=== PATIENT | female | born 1975 | race Caucasian/White ===

== ENCOUNTER 2020-08-03 09:28 | Outpatient (CLI) | payer OTHER, SELFPAY ==
--- NOTE | ~2020-08-03 | XR_ITS ---
EXAMINATION: XR knee LT 2V EXAM DATE: 08/03/2020 09:46 INDICATION: M25.569 - Pain in unspecified knee. Left central knee pain radiates laterally. Limited RO M. No surg. unk inj. TECHNIQUE: Frontal and lateral projections of the left knee. There is no prior study for comparison . FINDINGS: The left knee spaces are maintained. No joint effusion. There are no acute fractures or di slocations identified. There is no subcutaneous gas. Possible medial lower thigh varicose veins. T here are no radiopaque foreign bodies. IMPRESSION: 1. Possible medial thigh varicosities. 2. Unremarkable left knee. Reviewed, dictated and finalized at location A.
== END 2020-08-03 09:29 ==
PROVIDERS: PCP Family Medicine; Visit Provider Nurse Practitioner Family
DX: M25.569 Pain in unspecified knee (principal)
CPT/HCPCS: 73560

== ENCOUNTER 2023-10-14 14:05 | Emergency (ER) | payer BC, OTHER, SELFPAY ==
--- NOTE | ~2023-10-14 | CT_ITS ---
CT OF right knee EXAMINATION: CT knee RT wo con DATE: 10/14/2023 15:34 INDICATION: Knee pain TECHNIQUE: Computed tomography (CT) of the right knee was performed without intravenous contrast. Aut omated exposure control and iterative reconstruction technique were employed. The dose-length product was 527.54 mGy-cm. COMPARISON: X-ray right knee same date FINDINGS: 5 mm osseous excrescence off the lateral condyle, with overlying calcification measuring 4 mm in thic kness. Mild surrounding inflammatory change. No lytic or blastic lesion. No periosteal change. No fra cture or dislocation. Degenerative subchondral cysts in the tibial spine. The ACL is not visualized. Mild lateral joint space narrowing. Mild tricompartmental osteophytosis. IMPRESSION: 5 mm lateral epicondylar osteochondroma, with overlying cartilaginous cap calcification, thickening, and surrounding inflammatory change. Suspected chronic ACL tear. Consider nonemergent MRI of the knee for further evaluation. Reviewed, dictated and finalized at location K. IMPRESSION: 5 mm lateral epicondylar osteochondroma, with overlying cartilaginous cap calci fication, thickening, and surrounding inflammatory change. Suspected chronic ACL tear. Consider nonemergent MRI of the knee for further evaluation.
[2023-10-14 14:12] VITALS: BP 150/90; PULSE 100; RESP 20; TEMP 36.7; O2SAT 100
--- NOTE | 2023-10-14 15:29 | ED.LOWEXIN ---
HPI - Extremity Injury (Lower) General Chief Complaint: Extremity Injury, Lower Stated Complaint: R knee pain Time Seen by Provider: 10/14/23 15:00 History of Present Illness HPI Narrative: Pt presents with pain to her lateral right knee since yesterday without any injury. Pt says it hurt a little yesterday but got much worse today and is not able to bear weight due to pain. Related Data Allergies Allergy/AdvReac Type Severity Reaction Status Date / Time No Known Allergies Allergy Unknown Verified 10/14/23 15:14 Review of Systems Review of Systems: All systems reviewed & are unremarkable except as noted in HPI and below PMFSH Past Medical History Medical History (Updated 10/14/23 @ 18:44 by Jose Antonio Hamilton III, DO) BMI 29.0-29.9,adult Family History Family History Father Family history of premature coronary heart disease Mother Family history of malignant neoplasm of uterus Grandparent Diabetes mellitus Social History Social History (Updated 08/03/20 @ 08:37 by Marilee Hassan) Smoking status: Never smoker Alcohol intake: never Exam Const: General: healthy appearing and no acute distress Nutritional Appearance: well nourished Orientation/consciousness: patient oriented x3 Limitations: no limitations Resp: Effort & Inspection: normal respiratory effort Auscultation: clear to auscultation bilaterally Cardio: Rate: regular rate Rhythm: regular rhythm GI: GI Palp: Yes Soft to palpation and No Tenderness to palpation present (GI) Auscultation: normal bowel sounds Skin: General skin exam: normal color Rashes: no rashes Wounds: no wounds Neuro: General: patient oriented x3, moves all extremities, no meningeal signs and no focal motor deficits Speech: normal speech Extrem: General: normal to inspection and no clubbing, cyanosis or edema Other: tender over lateral collateral ligament no effusion some tenderness over lateral right hamstring. no calf pain. pulses intact distally. Course Vital Signs Vital signs: Vital Signs Temperature 98.0 F 10/14/23 14:12 Pulse Rate 100 10/14/23 14:12 Respiratory Rate 20 10/14/23 14:12 Blood Pressure 150/90 H 10/14/23 14:12 Pulse Oximetry 100 10/14/23 14:12 Oxygen Delivery Room Air 10/14/23 14:12 Temperature 98.0 F 10/14/23 14:12 Pulse Rate 100 10/14/23 14:12 Respiratory Rate 20 10/14/23 14:12 Blood Pressure 150/90 H 10/14/23 14:12 Pulse Oximetry 100 10/14/23 14:12 Oxygen Delivery Room Air 10/14/23 14:12 MDM - Extremity Injury (Lower) MDM Narrative Medical decision making narrative: pt tearful and unable to bear weight on right knee due to pain but no injury and no effusion or swelling. x ray unremarkable. will give shot of toradol and get CT of right knee due to level of pain without obvious explanation. CT shows benign osteochondroma. discussed with Dr Bobby will see pt in follow up. Discharge Plan Discharge Clinical Impression: Osteochondroma Patient Disposition: Home, Self-Care Condition: Improved Instructions: Antibiotic Form, Benign Bone Tumor (DC) Prescriptions: New hydrocodone-acetaminophen 5-325 mg tablet 1 tablet PO Q6H PRN (Reason: pain) Qty: 14 0RF No Action cyclobenzaprine 5 mg tablet 5 mg PO TID PRN (Reason: muscle spasm) Qty: 30 0RF Rx Instructions: can take 5-10mg as needed Follow-up/Referrals: Roman Bobby MD [Physician] - Deven Beckham MD [Primary Care Provider] -
[2023-10-14] MEDS: KETOROLAC 30 MG/ML VIAL (*BKC) IM (15:38)
== END 2023-10-14 16:30 | disposition home or self-care (01) ==
PROVIDERS: Emergency Provider Emergency Medicine; PCP Family Medicine
DX: D16.21 Benign neoplasm of long bones of right lower limb (principal)
CPT/HCPCS: 73562; 73700; 96372; 99284; J1885

== ENCOUNTER 2023-10-29 07:49 | Outpatient (CLI) | payer BC, OTHER, SELFPAY ==
--- NOTE | ~2023-10-29 | MR_ITS ---
EXAMINATION: MR knee RT wo con DATE: 10/29/2023 08:21 INDICATION: Right knee chondromalacia TECHNIQUE: Magnetic resonance imaging (MRI) of the right knee was performed without intravenous contr ast. Sequences included coronal PD-weighted FSE, coronal PD-weighted FS FSE, sagittal T2-weighted FS E, sagittal PD-weighted FS FSE and axial PD weighted fat saturated FSE. COMPARISON: None. FINDINGS: Medial compartment: Medial meniscus is normal. Partial-thickness chondral fissuring along the anterior weightbearing medi al femoral condyle which appears to involve less than 50% the cartilage surfaces without degenerative subchondral changes. Lateral compartment: Lateral meniscus is normal. Articular cartilage is normal. Patellofemoral compartment: Chondral ulceration appears to involve greater than 50% the cartilage thickness at the origins of the central patellar apical ridge with more shallow chondral ulceration and fissuring at the adjacent me dial lateral patellar facets. Deep chondral ulceration with underlying mild cortical irregularity and subarticular edema-like signal change at the lateral aspect of the lateral trochlea. Mild chondral s urface regularity at the medial trochlea and partial-thickness fissuring at the inferior aspect of th e trochlear groove without degenerative subchondral changes. Ligaments and tendons: Anterior and posterior cruciate ligaments are normal. The medial collateral ligament and fibular georges ateral ligament complex are normal. There is mild tendinopathy without tear of the proximal insertion of the medial head of the gastrocnemius. The extensor mechanism is normal. The visualized medial and lateral hamstring tendons as well as the iliotibial band are normal. Fluid: Physiologic amount of fluid in the joint space. No loose osteochondral bodies identified. Osseous/other: Prominent intraosseous cystic change at the intercondylar eminence which appears to arise the footpla te of the anterior cruciate ligament. There is some patchy red marrow reexpansion the metaphyseal reg ions of the femur, tibia and fibula. No fracture or pathologic marrow replacing process. IMPRESSION: 1. Mild osteoarthritis with moderate and high-grade chondromalacia at the patellofemoral compartment and with moderate grade chondromalacia in the medial compartment. 2. Mild tendinopathy without tear at the femoral origin of the lateral head of the gastrocnemius. Reviewed, dictated and finalized at location B. IMPRESSION: 1. Mild osteoarthritis with moderate and high-grade chondromalacia at the velasquez lofemoral compartment and with moderate grade chondromalacia in the medial comp artment. 2. Mild tendinopathy without tear at the femoral origin of the lateral head of the gastrocnemius.
== END 2023-10-29 07:50 ==
LOC: MICIMG 07:50
PROVIDERS: PCP Family Medicine; Visit Provider Orthopaedic Surgery
DX: M94.261 Chondromalacia, right knee (principal); M17.11 Unilateral primary osteoarthritis, right knee
CPT/HCPCS: 73721

== ENCOUNTER 2023-11-13 01:12 | Day surgery (SDC) | payer BC, OTHER, SELFPAY ==
[2023-11-04 13:12] VITALS: BMI 25.7
--- NOTE | 2023-11-04 13:18 | PC.NURSE ---
Report to the Outpatient Waiting Room, entrance under the green pavilion located off [facility], at time _0600_ on date _[id number]_. Planned Procedure Time: _0730_. Time changes happen often and if your time is changed the preop area will call you the afternoon before. - You and your visitor will be asked to self-screen and do not enter if you have any COVID symptoms. - A mask is optional within the hospital at this time. Patients may have clear liquids (water, carbonated beverages, clear teas, apple juice) until 3 hours prior to surgery with a maximum of 20 ounces. - No food from midnight until time of surgery Take the following medications with a SIP of water the morning of surgery: ___Pain pill if needed. DO NOT STOP ANY OF YOUR OTHER PRESCRIPTION MEDICATIONS PRIOR TO SURGERY ?EXCEPT THE FOLLOWING Medications to discontinue per physician None___ Date to take last dose Please no make-up, nail tristanian, hairspray, perfume, deodorant, or body powder the day of surgery. No jewelry (including any body piercings) or valuables the day of surgery, leave them at home. Please take a shower or bath the night before, or the morning of, surgery with an antibacterial soap. Wear comfortable, loose fitting clothing. - Jewelry must be removed prior to entering the operating room. Rings and piercings that are not removed may be cut off. - The hospital will not accept responsibility for valuables. - Please leave all valuables, including medications, at home the day of surgery. If you are going home after surgery, a licensed peg driver must drive you home. - NO public transportation without another adult if you receive anesthesia. - We recommend that an adult stay with you for 24 hours following discharge. - We also recommend that you do not drive, make important decision, drink alcoholic beverages, or take any drugs that were not prescribed by your health care provider for at least 24 hours after your discharge time. Follow any additional instructions given to you from your surgeon. If you or anyone in your household have experienced Covid symptoms in the past week, please notify your surgeon or the nurse liaison at the phone number below for possible testing. Telephone instructions given to __Mila___and asked if any additional questions and then verbalized understanding. Patient advised to call surgeon office or pre surgery nurse liaison [phone] if any additional questions.
--- NOTE | 2023-11-11 12:32 | PM.IMHP ---
H&P: HPI History of Present Illness Date/Time: 11/11/23 12:32 Chief Complaint: Right knee pain Narrative: 48-year-old with increasing right knee pain over the lateral aspect. No known injury. Found to have osteochondroma on MRI and radiographs. Review of Systems Constitutional: Constitutional: Denies fever(s) Eyes: Eyes: Denies blurry vision ENT: Reports Normal hearing present Cardiovascular: Cardiovascular: Denies chest pain and Denies dyspnea Respiratory: Respiratory: Denies dyspnea and Denies wheezing Gastrointestinal: Gastrointestinal: Denies abdominal pain Genitourinary: Genitourinary: Denies urinary urgency Musculoskeletal: Musculoskeletal: Reports as per HPI and Denies numbness Integumentary/Breasts: Skin/Breast: Denies changing lesions and Denies sores Neurologic: Reports Normal hearing present, Denies behavioral changes, Denies confusion, Denies numbness and Denies convulsions Psychiatric: Psychiatric: Denies behavioral changes, Denies confusion and Denies hallucinations Endocrine: Endocrine: Denies heat intolerance Hematologic/Lymphatic: Hematologic/Lymphatic: Denies easy bleeding Allergic/Immunologic: Allergic/Immunologic: Denies wheezing PMFSH Past Medical History Medical History (Updated 11/11/23 @ 12:33 by Roman Bobby MD) BMI 29.0-29.9,adult Chondromalacia of right knee Osteochondroma of right femur Surgical History Surgical History H/O gastric sleeve History of Family History Family History Father Family history of premature coronary heart disease Mother Family history of malignant neoplasm of uterus Grandparent Diabetes mellitus Social History Social History Social History: caffeine use Smoking status: Never smoker Alcohol intake: current Drinks per week: 2 Living arrangements: with family Occupation/Education: occupation 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- [employer] Gender identity (if verbalized by the patient): Female Spiritual care concerns: No Meds Home Medications and Allergies Home Medications Medication Instructions Recorded Confirmed Type hydrocodone 5 mg-acetaminophen 325 1 tablet PO Q6H PRN pain #20 tabs 06/12/24 07/02/24 Rx mg tablet Allergies Allergy/AdvReac Type Severity Reaction Status Date / Time No Known Allergies Allergy Unknown Verified 11/04/23 13:11 Exam Const: General: No confusion Orientation/consciousness: patient oriented x3 and No confusion HENMT: Head: normal to inspection, normocephalic and atraumatic Eyes: Conjunctivae: conjunctivae normal Sclera: sclerae normal Neck: Neck: supple and nontender Chest: Chest palpation & inspection: normal inspection of the chest Resp: Effort & Inspection: normal respiratory effort and no audible wheezes Cardio: Rate: regular rate Rhythm: regular rhythm GI: GI Palp: No abdominal tenderness and Yes Soft to palpation : General: Yes deferred Skin: General skin exam: no rashes or lesions noted Neuro: General: patient oriented x3 and No confusion Extrem: General: capillary refill normal Right upper extremity: normal to inspection Left upper extremity: normal to inspection Right lower extremity: hip/thigh Details: normal to inspection and normal ROM; no tenderness, knee Details: normal to inspection, tenderness Location: of the medial joint line, swelling Location: of the pre-patellar area, abnormal ROM Details: pain with active ROM during Details: in extension and in flexion and with range as follows ( -5 degrees - flexion 120?) and Stacey's Test Details: positive medially, ankle ( able to actively flex and extend ankle) Details: no tenderness and foot Details: normal capillary refill, toes with normal ROM, vascular exam Details: dorsalis pedis pu
--- NOTE | 2023-11-12 15:34 | WPDANESEPPF ---
Anes - Initial Pre Proc Eval Procedure: Operation Date: 11/13/23 07:30 Proposed Procedures p Excision of Osteochondroma Right Knee, Proceed As Indicated - Roman Bobby MD Date/Time: 11/12/23 15:34 Surgeon: Roman Bobby MD Pre Op Diagnosis: Rt Knee Osteochondromia Patient Data Age: 48 Gender: F Height: 1.6 m Weight: 65.9 kg Allergies Allergy/AdvReac Type Severity Reaction Status Date / Time No Known Allergies Allergy Unknown Verified 11/13/23 06:50 Home Medications Medication Instructions Recorded Confirmed Type hydrocodone 5 mg-acetaminophen 325 1 tablet PO Q6H PRN pain #20 tabs 10/15/23 11/13/23 Rx mg tablet Patient hx anesthesia problems: none Family hx anesthesia problems: none Results Review: All pre-operative results and documents have been reviewed as part of the pre-operative evaluation. [facility] Past Medical History Medical History (Updated 11/11/23 @ 12:33 by Roman Bobby MD) BMI 29.0-29.9,adult Chondromalacia of right knee Osteochondroma of right femur Surgical History Surgical History H/O gastric sleeve History of Family History Family History Father Family history of premature coronary heart disease Mother Family history of malignant neoplasm of uterus Grandparent Diabetes mellitus Social History Social History Social History: caffeine use Smoking status: Never smoker Alcohol intake: current Drinks per week: 2 Living arrangements: with family Occupation/Education: occupation 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 Informed Consent: The patient's anesthetic plan and its attendant risks and benefits were discussed with the patient/family/POA. Questions were solicited and answers provided to the satisfaction of the patient/family/POA.
[2023-11-13] VITALS (8 sets, daily range): BP systolic 93–128; BP diastolic 70–85; PULSE 46–70; RESP 8–16; TEMP 36.8–37; O2SAT 99–100
[2023-11-13] MEDS: LACTATED RINGERS 1,000 ML 30 ML IV CONT ×2 (06:30→08:57)
[2023-11-13] MEDS: ACETAMINOPHEN 500 MG TABLET 1000 MG PO (06:37)
[2023-11-13] MEDS: KETOROLAC 15 MG/ML VIAL (*BKC) IV PUSH (06:45)
--- NOTE | 2023-11-13 06:57 | WPDHPUPDATE1 ---
History and Physical Update Update Date/Time: 11/13/23 06:57 History and Physical has been reviewed, including an updated exam of the patient. There are NO changes in the patient's condition. Risks, benefits, and alternatives have been discussed and questions answered. Patient agrees to proceed with procedure.
[2023-11-13] MEDS: ceFAZolin 2 GM/D5W 50 ML 2 GM/50 ML BAG IVPB (07:25)
[2023-11-13] MEDS: BUPivacaine HCL 0.5% 10 ML AMP 20 ML INFILTRATE (07:49)
[2023-11-13] MEDS: fentaNYL CITRATE INJ (*CRX) 100 MCG/2 ML VIAL 25 MCG IV PUSH ×2 (09:12→09:15)
--- NOTE | 2023-11-13 09:14 | P.OP_ITS ---
Procedure Note - Detailed Date of Procedure 11/13/23 Pre-op Diagnosis Rt Knee Osteochondromia Post-op Diagnosis Same Procedure Performed excision of osteochondroma right distal femur Surgeon Roman Bobby MD String Top Sealer 1st psychiatric technician assistant Anesthesia General Indications 48-year-old with right lateral knee pain and swelling. Radiographs show osteochondroma of the lateral distal femur. CT scan and MRI confirmed findings. Due to pressure on the soft tissue and pain, patient presents for operative excision. Findings 3 x 1.5 x 0.8 cm bony cartilaginous mass lateral femoral condyle Description of Procedure Patient identified in the preoperative holding. Informed consent given. Operative extremity marked. Patient received intravenous antibiotics. Patient brought to the operating room where underwent general anesthetic by anesthesia team. Positioned supine on operating room table. Time-out performed confirming the patient, site of the surgery and the plan. right knee prepped draped usual sterile surgical fashion using ChloraPrep skin solution. Leg exsanguinated and thigh tourniquet inflated to 250 mmHg. Local anesthetic with 0.5% Marcaine plain. Longitudinal incision made over the lateral knee centered over the palpable mass. Hemostasis controlled electrocautery. Iliotibial band identified and incised in line with the skin incision over the mass. Soft tissues was then dissected from the mass arising from the lateral femoral condyle. Appearance of cartilage tissue over the top confirmed the mass. Osteotome then used to resect the mass in 1 unit insuring resection normal bone level. Specimen passed off. No abnormal elements noted. Wound saline and suctioned. Bone bed then addressed bone wax. Fascia repaired with 2-0 Vicryl interrupted suture. Subcutaneous tissue repaired with 2-0 Vicryl and 3-0 Monocryl interrupted suture. Skin repaired with 3-0 Monocryl running subcuticular stitch. Sterile dressing applied. The patient was then woken from anesthesia, extubated and taken to the recovery room in stable condition. All sponge, needle, instrument counts were correct at the end of the case. Implants None Estimated Blood Loss 5 Tourniquet Time Total Tourniquet Time: 43 Drains No Packing No Pathology Yes ( mass right lateral femoral condyle) Complications None Condition Stable Disposition PACU [facility] Billing Surgery - Charge Forward: Surgery Billing ([id number])
== END 2023-11-13 10:25 | disposition home or self-care (01) ==
PROVIDERS: PCP Family Medicine; Visit Provider Orthopaedic Surgery
PROC: (CPT 27355; principal; 2023-11-13 07:30)
DX: D16.21 Benign neoplasm of long bones of right lower limb (principal); Z79.891 Long term (current) use of opiate analgesic; Z98.890 Other specified postprocedural states; Z98.84 Bariatric surgery status; Z80.49 Family history of malignant neoplasm of other genital organs; Z82.49 Family history of ischemic heart disease and other diseases of the circulatory system
CPT/HCPCS: 27355; 88304; 88311; A9270; J0690; J1100; J1885; J2250; J2405; J2704; J3010; J7120

== ENCOUNTER 2023-11-21 14:56 | Outpatient (RCR) | payer BC, OTHER, SELFPAY ==
--- NOTE | 2023-11-21 15:45 | OPREHPOC ---
Outpatient Therapy Plan of Care This is a Multidisciplinary Plan of Care that may contain components documented by all disciplines (PT, OT, and ST.) PT Problem 1 PT Problem #1 Knowledge Deficit PT Goal 1 Goal 1. independent and compliant with HEP Target Visit 6 PT Problem 2 PT Problem #2 Pain PT Goal 1 Goal 1. patient to return to pain free activities Target Visit 12 PT Problem 3 PT Problem #3 Impaired Range of Motion PT Goal 1 Goal 1. 0-140 degrees active R knee rom pain free Target Visit 12 PT Problem 4 PT Problem #4 Impaired Strength PT Goal 1 Goal 1. 5/5 R knee strength 2. 5/5 R hip strength 3. no R knee extension lag Target Visit 12 PT Problem 5 PT Problem #5 Impaired Functional Mobil PT Goal 1 Goal 1. LEFS to display 20% or less functional deficits 2. patient to ambulate with normal gait mechanics 3. reciprocal ambulation up and down steps 4. patient to ambulate 1000ft or more in 6 minute walk test Target Visit 12
--- NOTE | 2023-11-21 15:45 | PTOPEVAL1 ---
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 she reports she had an xray and CT scan and found a mass. she reports this was a benign bone tumor. she reports the surgeon had to split a tendon to get to the bone. she reports she still has pain in the R LE since th surgery. she reports she has difficulty with all activities on her feet. she reports she is able to walk, but is limited in distance. Reported Pain Level Pain Score 2: Self Report Assessment PT Clinical Summary mrs. grey is a pleasant 48 yo woman who presents to skilled PT services for evaluation and treatment of R knee pain, weakness, and decreased functional activity performance following a surgery to remove a benign tumor. she presents today with pain in the lateral R LE, decreased R knee active rom, R LE weakness, and abnormal gait mechanics. she would benefit from continued skilled PT to address her objective/functional deficits and return to prior level functional activity performance/quality of life. Plan of Care Interventions Electrical Stimulation,Gait Training,Hot Pack/Cold Pack,Intermittent Compression,Manual Therapy, Neuro Re-education,Patient/Caregiver Educati, Therapeutic Activities,Therapeutic Exercise PT Services Indicated Yes Treatment Frequency and 3x weekly for 12 visits Duration These treatments will address the objective and functional deficits as defined above. The patient will be advanced safely and appropriately in order for the patient to progress towards his/her prior level of function. Additional exercises will be introduced and as well as a comprehensive home exercise program upon discharge, if needed, ?to ensure carryover of functional gains achieved in the clinic. This treatment plan has been reviewed and agreement upon by the patient.
--- NOTE | 2023-12-01 17:08 | PCPTNOTE ---
I reviewed the License Pending Therapist's documentation and agree with the findings.
--- NOTE | 2023-12-01 17:09 | PCPTNOTE ---
I reviewed the License Pending Therapist's documentation and agree with the findings for note 11/24/23
--- NOTE | 2023-12-05 13:24 | PCPTNOTE ---
On 12/05/23, the license pending V BLOCK SAW OPERATOR, [Yris Cottrell ], provided care and completed [facility] documentation on this patient. I have reviewed the license pending V BLOCK SAW OPERATOR's documentation and agree with the findings.
--- NOTE | 2023-12-08 17:49 | PCPTNOTE ---
I reviewed the License Pending Therapist's documentation and agree with the findings.
--- NOTE | 2023-12-12 17:25 | PCPTNOTE ---
I reviewed the License Pending Therapist's documentation and agree with the findings.
--- NOTE | 2023-12-16 15:17 | OPREHPOC ---
Outpatient Therapy Plan of Care This is a Multidisciplinary Plan of Care that may contain components documented by all disciplines (PT, OT, and ST.) PT Problem 1 PT Problem #1 Knowledge Deficit PT Goal 1 Goal 1. independent and compliant with HEP Target Visit 6 Progress Met PT Problem 2 PT Problem #2 Pain PT Goal 1 Goal 1. patient to return to pain free activities Target Visit 12 Progress Not Met PT Problem 3 PT Problem #3 Impaired Range of Motion PT Goal 1 Goal 1. 0-140 degrees active R knee rom pain free Target Visit 12 Progress Met PT Problem 4 PT Problem #4 Impaired Strength PT Goal 1 Goal 1. 5/5 R knee strength 2. 5/5 R hip strength 3. no R knee extension lag Target Visit 12 PT Problem 5 PT Problem #5 Impaired Functional Mobil PT Goal 1 Goal 1. LEFS to display 20% or less functional deficits 2. patient to ambulate with normal gait mechanics 3. reciprocal ambulation up and down steps 4. patient to ambulate 1000ft or more in 6 minute walk test Target Visit 12 Progress Partially Met
--- NOTE | 2023-12-16 15:18 | PTOPPROG ---
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 she reports she continues to have pain in the R knee, but reports she is hoping to return to work next week. she reports her mobility in the R knee is improved. Assessment PT Clinical Summary mrs. grey presents to skilled PT services for her 10th skilled PT visit. her pain is decreased since her initial evaluation, and her ROM is improved. patient ambulates short bouts with normal mechanics, but patient continues to have unmet strength, pain, and functional goals. continued skilled PT is indicated as patient is trying to return to work and normal functional activities. Plan of Care Interventions Electrical Stimulation,Gait Training,Hot Pack/Cold Pack,Intermittent Compression,Manual Therapy, Neuro Re-education,Patient/Caregiver Educati, Therapeutic Activities,Therapeutic Exercise PT Services Indicated Yes Treatment Frequency and continue skilled PT per initial POC Duration These treatments will address the objective and functional deficits as defined above. The patient will be advanced safely and appropriately in order for the patient to progress towards his/her prior level of function. Additional exercises will be introduced and as well as a comprehensive home exercise program upon discharge, if needed, ?to ensure carryover of functional gains achieved in the clinic. This treatment plan has been reviewed and agreement upon by the patient.
--- NOTE | 2023-12-19 13:08 | OPREHPOC ---
Outpatient Therapy Plan of Care This is a Multidisciplinary Plan of Care that may contain components documented by all disciplines (PT, OT, and ST.) PT Problem 1 PT Problem #1 Knowledge Deficit PT Goal 1 Goal 1. independent and compliant with HEP Target Visit 6 Progress Met PT Problem 2 PT Problem #2 Pain PT Goal 1 Goal 1. patient to return to pain free activities Target Visit 12 Progress Met PT Problem 3 PT Problem #3 Impaired Range of Motion PT Goal 1 Goal 1. 0-140 degrees active R knee rom pain free Target Visit 12 Progress Met PT Problem 4 PT Problem #4 Impaired Strength PT Goal 1 Goal 1. 5/5 R knee strength 2. 5/5 R hip strength 3. no R knee extension lag Target Visit 12 Progress Met PT Problem 5 PT Problem #5 Impaired Functional Mobil PT Goal 1 Goal 1. LEFS to display 20% or less functional deficits 2. patient to ambulate with normal gait mechanics 3. reciprocal ambulation up and down steps 4. patient to ambulate 1000ft or more in 6 minute walk test Target Visit 12 Progress Met
--- NOTE | 2023-12-19 13:08 | PTOPDC ---
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 she reports she has no pain in the R LE. she reports she has been compliant with HEP at home. she reports she is ready to return to work. she reports she is ready to be done with therapy today . Reported Pain Level Pain Score 0: Self Report Pain Score 0: Self Report Assessment PT Clinical Summary mrs. grey presents to skilled PT services for her 12th skilled PT visit. she has not pain in the R LE any longer, and has met all goals for skilled PT. she will DC skilled PT today, and plans to return to work next week. patient will continue with HEP independent at home. Plan of Care PT Services Indicated Yes
== END 2023-12-19 13:22 | disposition home or self-care (01) ==
LOC: CHSPT 14:56
PROVIDERS: Visit Provider Orthopaedic Surgery
DX: D16.21 Benign neoplasm of long bones of right lower limb (principal)
CPT/HCPCS: 97016; 97110; 97112; 97150; 97161; 97530

== ENCOUNTER 2024-03-20 07:36 | Outpatient (CLI) | payer OTHER, BC, SELFPAY ==
--- NOTE | ~2024-03-20 | MM_ITS ---
EXAMINATION: MM screening angel BI w lenard HISTORY: Screening mammogram TECHNIQUE: Craniocaudal and mediolateral oblique 3-D tomosynthesis images were obtained and synthetic 2-D images were generated. CAD analysis was submitted and interpreted. COMPARISON: 02/18/2018 BREAST PARENCHYMAL COMPOSITION:Dense: The breasts are extremely dense, which lowers the sensitivity o f mammography. FINDINGS: Stable lower, inner right breast mass with associated biopsy marker. No suspicious mass, ca lcification, or architectural distortion are identified in either breast to suggest malignancy. There has been no suspicious interval change. IMPRESSION: No mammographic evidence of malignancy. Recommend routine screening mammography in one year. BI-RADS Category 2: Benign finding(s). Reviewed, dictated and finalized at location M. MBLER CARDS AND ANNOUNCEMENTS
== END 2024-03-20 07:37 | disposition home or self-care (01) ==
LOC: MICIMG 07:38
PROVIDERS: PCP Obstetrics & Gynecology; Visit Provider Obstetrics & Gynecology
DX: Z12.31 Encounter for screening mammogram for malignant neoplasm of breast (principal)
CPT/HCPCS: 77063; 77067

== ENCOUNTER 2025-01-02 09:52 | Emergency (ER) | payer BC, OTHER, SELFPAY ==
[2025-01-02 10:03] VITALS: BP 124/61; PULSE 73; RESP 18; TEMP 36.4; O2SAT 100
--- NOTE | 2025-01-02 10:19 | ED.URI ---
HPI - URI/Sore Throat General Chief Complaint: Upper Respiratory Infection Stated Complaint: strep throat Patient presents to Express Care with complaints of pain and burning to roof of mouth and throat that began yesterday. Patient reports significant pain with swallowing and eating due to these symptoms. Denies fever, chills, body aches, nasal congestion, ear pain, headache, dizziness, cough, nausea, vomiting, diarrhea. Patient reports no specific known sick contacts and no history of frequent strep infections. Related Data Allergies Allergy/AdvReac Type Severity Reaction Status Date / Time No Known Allergies Allergy Unknown Verified 01/02/25 10:07 Review of Systems Constitutional: Constitutional: Reports as per HPI, Denies chills, Denies fatigue, Denies fever(s) and Denies weakness Eyes: Eyes: Reports no additional eye complaints ENT: Reports as per HPI, Denies dysphagia, Denies vertigo, Denies dizziness, Denies epistaxis, Denies nasal congestion and Reports sore throat Cardiovascular: Cardiovascular: Reports no additional cardiovascular complaints Respiratory: Respiratory: Reports as per HPI, Denies chest congestion and Denies cough Gastrointestinal: Gastrointestinal: Reports as per HPI, Denies abdominal pain, Denies diarrhea, Denies nausea and Denies vomiting Genitourinary: Genitourinary: Reports no additional female genitourinary complaints Musculoskeletal: Musculoskeletal: Reports as per HPI and Denies myalgias Integumentary/Breasts: Skin/Breast: Reports as per HPI, Denies erythema and Denies rash Neurologic: Reports as per HPI, Denies vertigo, Denies dizziness and Denies headache(s) Psychiatric: Psychiatric: Reports no additional psychiatric complaints Endocrine: Endocrine: Reports no additional endocrine complaints Hematologic/Lymphatic: Hematologic/Lymphatic: Reports no additional hematologic/lymphatic complaints Allergic/Immunologic: Allergic/Immunologic: Reports no additional allergic/immunologic complaints [facility] Past Medical History Medical History 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 BMI 29.0-29.9,adult Surgical History Surgical History H/O gastric sleeve History of Family History Family History Father Family history of premature coronary heart disease Mother Family history of malignant neoplasm of uterus Grandparent Diabetes mellitus Social History Social History Social History: caffeine use Smoking status: Never smoker Alcohol intake: never Drinks per week: 2 Living arrangements: with family Occupation/Education: occupation 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- [employer] Gender identity (if verbalized by the patient): Female Spiritual care concerns: No Exam Const: General: healthy appearing and no acute distress Nutritional Appearance: well nourished Orientation/consciousness: patient oriented x3 Limitations: no limitations HENMT: Head: normal to inspection Ears: external ears normal and TM's normal bilaterally Face/Nose/Sinus: Normal external nose present and Normal nares present Face and sinus: normal facial exam and sinuses nontender Mouth: Yes lip normal and Yes moist mucous membranes Throat: posterior oropharynx abnormal ( Diffuse erythema over the roof of males in posterior pharynx. ) Other: no edema or exudate in posterior pharynx Neck: Neck: normal visual inspection and no lymphadenopathy Resp: Effort & Inspection: normal respiratory effort Auscultation: clear to auscultation bilaterally Cardio: Rate: regular rate Rhythm: regular rhythm Skin: General skin exam: normal color Rashes: no rashes Wounds: no wounds Neuro: General: patient oriented x3 Speech: normal speech Gait exam (Neuro): Normal gait present Psych: Mental Status: mental status grossly normal Affect: normal affect Attitude: cooperative Course Course Level of Care: Express Care Visit Vital Signs Vital signs: Vital Signs Temperature 97.6 F 01/02/25 10:03 Pulse Rate 73 01/02/25 10:03 Respiratory Rate 18 01/02/25 10:03 Blood Pressure 124/61 01/02/25 10:03 Pulse Oximetry 100 01/02/25 10:03 Oxygen Delivery Room Air 01/02/25 10:03 Temperature 97.6 F 01/02/25 10:03 Pulse Rate 73 01/02/25 10:03 Respiratory Rate 18 01/02/25 10:03 Blood Pressure 124/61 01/02/25 10:03 Pulse Oximetry 100 01/02/25 10:03 Oxygen Delivery Room Air 01/02/25 10:03 MDM - URI/Sore Throat MDM Narrative Medical decision making narrative: strep testing negative in clinic will send for culture. No obvious signs of strep. The patient was evaluated by myself in the [facility] care. History is obtained from patient who is an independent historian and physical exam was performed. Available medical records were reviewed at this time. Exam findings show no acute concerns or changes; patient is non-toxic appearing and is in no distress. Patient is appropriate for outpatient treatment and follow-up. I have evaluated and discussed social determinants of health with the patient that could potentially impact subsequent diagnosis and treatment plans. Differential diagnosis and treatment plan were discussed with the patient. Patient agrees with discussion and after shared medical decision making agrees with plan of care. All questions were answered to the patient's satisfaction. Differential Diagnosis Differential diagnosis: Likely upper respiratory infection, otitis media, sinusitis, influenza and pharyngitis Medical Records Attestation: I reviewed the patient's medical records. Lab Data Attestation: I reviewed the patient's lab results. Labs: Lab Results 01/02/25 Range/Units 10:24 POC Grp A Strep Screen Negative (Negative) Discharge Plan Discharge Clinical Impression: Pharyngitis Patient Disposition: Home Condition: Stable Instructions: Antibiotic Form, Pharyngitis (ED), Strep Throat (ED) Additional Instructions: Rapid strep is negative in the office; however we will send to the lab for confirmation; there is a small percentage chance that it can come back positive; if it is, we will call you in 2-3days; and your prescription will be call in to your pharmacy. However, there is NO indication for antibiotic at this time. Recommend antihistamine such as Benadryl at night time and Claritin/Zyrtec/Kasia during the day -Eat something that is easy to swallow, like tea or soup, or popsicles to suck on. You might not feel like eating or drinking, but it's important that you get enough liquids. -Oral rinses such as: Salt water gargles and/or may use topical anesthetic (eg. Chloraseptic spray) or lozenges to relieve dryness or throat pain. -Take tylenol and ibuprofen as needed for pain and fever as directed. -Frequent hand washing or hand post anesthesia care unit nurse is one of the best ways to prevent spread of infection. Please schedule a followup visit with your personal physician for further evaluation and treatment within 3-5days or If your symptoms persist, change or worsen significantly before you can contact your personal physician then please, without delay, go to the emergency department for further evaluation. Patient Language: Niuean Prescriptions: New lidocaine HCl [Lidocaine Viscous] 2 % solution 1 applic mucous membrane QID PRN (Reason: pain) Qty: 100 0RF Follow-up/Referrals: Deven Beckham MD [Primary Care Provider, Family Practice] Time of Disposition: 10:27
[2025-01-02 10:26] LABS: EDSTREPNEGPOS1 Negative (Negative)
== END 2025-01-02 10:31 | disposition home or self-care (01) ==
PROVIDERS: Emergency Provider Nurse Practitioner Family; PCP Family Medicine
DX: J02.9 Acute pharyngitis, unspecified (principal)
CPT/HCPCS: 87081; 87880; 99213; G0463

== ENCOUNTER 2025-04-01 08:57 | Outpatient (CLI) | payer BC, OTHER, SELFPAY ==
--- NOTE | ~2025-04-01 | MM_ITS ---
EXAMINATION: MM screening angel BI w lenard HISTORY: Screening. TECHNIQUE: Craniocaudal and mediolateral oblique 3-D tomosynthesis images were obtained and synthetic 2-D images were generated. CAD analysis was submitted and interpreted. COMPARISON: 2023 BREAST PARENCHYMAL COMPOSITION: Dense: The breast tissue is heterogeneously dense, which may obscure small masses. FINDINGS: There is a mass on the right containing a biopsy marker. It is stable to decreased in size. No suspicious masses are seen. There are no suspicious calcifications. No unexplained architectural distortion is seen. There are no skin or nipple abnormalities identified. There is no adenopathy seen on the images submitted. IMPRESSION: No mammographic evidence to suggest malignancy is seen. The patient may return to screening mammography as per ACR guidelines. BI-RADS: 2 - Benign. Reviewed, dictated and finalized at location A. SION THERAPY NURSE
--- OUTSIDE RECORDS SUMMARY | 2025-04-01 09:02 | XMS_ITS | Clinical Summary ---
Author Organization [facility] Address [address] [place] [id number] Care Team Providers Care Java Software Architect Name Role Phone None, Provider MD Primary Care Provider Unavaila ble Allergies No known active allergies Medications No known medications Active Problems No known active problems Social History Tobacco Use Types Packs/Day Years Used Date Smoking Tobacco: Never Smokeless Tobacco: Never Tobacco Cessation:Counseling Given: No Alcohol Use Standard Drinks/Week Comments Yes 0 (1 standard drink = 0.6 oz pur e alcohol) occ PHQ-2 Answer Date Recorded Patient Health Questionnaire-2 Score 0 05/17/2022 Comments No Sex and Gender Information Value Date Recorded Sex Assigned at Not on file Legal Sex Female 4:42 PM CDT Gender Identity Not on file Sexual Orientation Not on file Last Filed Vital Signs Vital Sign Reading Time Taken Comments Blood Pressure 107/78 05/17/2022 9:32 AM PAD ASSEMBLER Pulse 85 05/17/2022 9:32 AM PAD ASSEMBLER Temperature 37.3 C (99.1 F) 05/17/2022 9:32 AM PAD ASSEMBLER Respiratory Rate 12 05/17/2022 9:32 AM PAD ASSEMBLER Oxygen Saturation 99% 05/17/2022 9:32 AM PAD ASSEMBLER Inhaled Oxygen Concentration - - Weight 69.9 kg (154 lb) 05/17/2022 9:32 AM PAD ASSEMBLER Height 160 cm (5' 3) 05/17/2022 9:32 AM PAD ASSEMBLER Body Mass Index 27.28 05/17/2022 9:32 AM PAD ASSEMBLER Plan of Treatment Health Maintenance Due Date Last Done Comments Cervical Cancer Screening Pa p Smear (Age 30 to 64) Every 3 Years 1977 Colorectal Cancer Screening Colonoscopy (10 Years) 1977 Annual Physical 02/14/1980 Hepatitis C 1995 DTaP, Tdap and Td Vaccines ( 1 - Tdap) 02/14/1996 Hepatitis B Vaccines (1 of 3 - 19+ 3-dose series) 02/14/1996 Cervical Cancer Screening Jamaal quinn with HPV Testing (Age 30 to 64) Every 5 Years 2007 Cervical Cancer Screening with HPV 2007 Mammogram Screening 2017 COVID-19 Vaccine ( - 2024-2 6 season) 2025 Influenza Adult (#1) 2025 Hepatitis A Vaccines Aged Out No long er eligible based on patient's age to complete this topic Meningococcal B Vaccine Aged Out No l onger eligible based on patient's age to complete this topic Meningococcal Vaccine Aged Out No ella dre eligible based on patient's age to complete this topic Pneumococcal Vaccine: Pediat rics (0 to 5 Years) and At-Risk Patients (6 to 49 Years) Aged Out No longer eligible b ased on patient's age to complete this topic RSV Immunizations Under 20 Months Aged Out No longer eligible based on patient's age to complete this topic [place] [id number] [place] [address] Care Teams Java Software Architect Relationship Specialty Start Date End Date None, Provider, MD PCP - General UNKNOWN PHYSICIAN SPECIALTY 05/17/22
== END 2025-04-01 08:58 | disposition home or self-care (01) ==
LOC: ANHFOHIMG 08:59
PROVIDERS: PCP Family Medicine; Visit Provider Obstetrics & Gynecology
DX: Z12.31 Encounter for screening mammogram for malignant neoplasm of breast (principal)
CPT/HCPCS: 77063; 77067

== ENCOUNTER 2025-04-16 14:52 | Emergency (ER) | payer BC, OTHER, SELFPAY ==
[2025-04-16 15:01] VITALS: BP 117/94; PULSE 65; RESP 16; TEMP 36.3; O2SAT 100
--- OUTSIDE RECORDS SUMMARY | 2025-04-16 15:25 | XMS_ITS | Clinical Summary ---
Author Organization [facility] Address [address] [place] [id number] Care Team Providers Care Education Liaison Name Role Phone None, Provider MD Primary [...] Comments Blood Pressure 107/78 05/17/2022 9:32 AM DIRECTOR OF CATERING Pulse 85 05/17/2022 9:32 AM DIRECTOR OF CATERING Temperature 37.3 C (99.1 F) 05/17/2022 9:32 AM DIRECTOR OF CATERING Respiratory Rate 12 05/17/2022 9:32 AM DIRECTOR OF CATERING Oxygen Saturation 99% 05/17/2022 9:32 AM DIRECTOR OF CATERING Inhaled Oxygen Concentration - - Weight 69.9 kg (154 lb) 05/17/2022 9:32 AM DIRECTOR OF CATERING Height 160 cm (5' 3) 05/17/2022 9:32 AM DIRECTOR OF CATERING Body Mass Index 27.28 05/17/2022 9:32 AM DIRECTOR OF CATERING Plan of Treatment Health Maintenance Due Date [...] patient's age to complete this topic [place] [id number] [place] [address] Care Teams Education Liaison Relationship Specialty Start Date End Date None, Provider, MD PCP - General UNKNOWN PHYSICIAN SPECIALTY 05/17/22
--- OUTSIDE RECORDS SUMMARY | 2025-04-16 15:25 | XMS_ITS | Clinical Summary ---
Author Organization [facility] Address [address] [place] [address] Care Team Providers Care Archives Director Name Role Phone Unknown, Provider Primary Care Provider Unavaila ble Source Comments [facility],non-owned Affiliates and Associated Physician Practices is amultiple site organization consisting of ambulatory clinics and hospital sitesin [place], [place], [place] and [place]. This disclosure is being madepursuant to the Care Everywhere program and may not contain all information available regarding this patient. Last updated 18.[facility] Health Encounters Date Type Department Care Team Description 04/16/2025 8:09 AM FLOWER PICKER Hospital Encounter [facility] [place] [address] Roman Bobby MD from Last 3 Months Social History Tobacco Use Types Packs/Day Years Used Date Smoking Tobacco: Never Assessed Comments Unknown Sex and Gender Information Value Date Recorded Sex Assigned at Not on file Legal Sex Female 7:08 AM CDT Gender Identity Not on file Sexual Orientation Not on file Plan of Treatment Health Maintenance Due Date Last Done Comments COLOGUARD (AGES 45-75) - COL ON CA SCREENING 1977 COLON MONITORING 1977 COLONOSCOPY - COLON CA SCREENING 1977 CT COLONOGRAPHY - COLON CA SCREENING 1977 Colorectal Cancer Screening 1977 FIT - COLON CA SCREENING 1977 FLEX SIG - COLON CA SCREENING 1977 LIPID TESTING 1977 MAMMOGRAM 1977 HIV SCREENING 02/14/1992 HEPATITIS C SCREENING 02/09/1995 DTAP/TDAP/TD VACCINES (1 - Tdap) 02/14/1996 HEPATITIS B VACCINE (1 of 3 - 19+ 3-dose series) 02/14/1996 PAP SMEAR 1998 DEPRESSION SCREENING 05/05/2024 COVID-19 VACCINE (1 - 2024-2 6 season) 2025 INFLUENZA VACCINE (#1) 2025 ZOSTER VACCINE (1 of 2) 2027 HIB VACCINE Aged Out No longer eligi ble based on patient's age to complete this topic HPV VACCINE Aged Out No longer eligi ble based on patient's age to complete this topic MENINGOCOCCAL (Group B) VACC INE SHARED DECISION-MAKING Aged Out No longer eligibl e based on patient's age to complete this topic MENINGOCOCCAL GROUPS A/C/Y/W VACCINE Aged Out No longer eligible b ased on patient's age to complete this topic PNEUMOCOCCAL VACCINE Aged Out No long er eligible based on patient's age to complete this topic Insurance [employer] * Guarantor: NAT GARCIA Account Type Relation to Patient Date of Phone Billing Address Personal/Family [address] [place] [address] [employer] * Guarantor: NAT GARCIA Account Type Relation to Patient Date of Phone Billing Address Personal/Family [address] [place] [address] [facility] Care Teams Archives Director Relationship Specialty Start Date End Date Unknown, Provider PCP - General 04/16/25
[2025-04-16 16:51] VITALS: BP 138/85; PULSE 65; RESP 14; O2SAT 97
--- NOTE | 2025-04-16 17:37 | ED.GENADULT ---
HPI - General Adult General Chief complaint: Extremity Injury, Lower Stated complaint: Knee pain Time Seen by Provider: 04/16/25 15:15 History of Present Illness HPI narrative: 50-year-old female presenting with right knee pain. Patient states she has a significant history of knee issues. She had been experiencing right knee pain for the last 3 and half weeks and had seen Dr. Bobby with Orthopedics who ordered an MRI. Patient underwent the MRI this morning and then went home and was walking outside when she suddenly felt a pop. She was able to bear weight immediately but the pain began to worsen and she is now reporting that she cannot bear weight. Denies numbness/tingling. Neurovascular intact. 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 BMI 29.0-29.9,adult Surgical History Surgical History H/O gastric sleeve History of Family History Family History Father Family history of premature coronary heart disease Mother Family history of malignant neoplasm of uterus Grandparent Diabetes mellitus Social History Social History Social History: caffeine use Smoking status: Never smoker Alcohol intake: never Drinks per week: 2 Living arrangements: with family Occupation/Education: occupation 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 HEAD: Normocephalic, atraumatic. EYES: PERRLA and EOMI. ENT: Nares clear, no rhinorrhea or epistaxis. Mucous membranes moist. Oropharynx without tonsillar hypertrophy exudate or other lesions. Bilateral TMs pearly cheng non-bulging NECK: Supple. No adenopathy or masses. No carotid bruits or JVD CHEST: Clear to auscultation. No respiratory distress. No wheezes rales or rhonchi HEART: Regular rate and rhythm. No murmur heard. Normal peripheral pulses. ABDOMEN: Soft, nontender, nondistended, normal active bowel sounds. EXTREMITIES: RLE normal range of motion. 5/5 strength. No edema. No ecchymosis or other overlying skin changes. Patellar maltracking with lateral subluxation on knee extension. No popping or catching noted with passive ROM. SKIN: Warm, dry, no rash. NEURO: No focal deficits. Alert and oriented x3. PSYCH: Normal mood and affect Course Vital Signs Vital signs: Vital Signs Temperature 97.3 F L 04/16/25 15:01 Pulse Rate 65 04/16/25 15:01 Respiratory Rate 16 04/16/25 15:01 Blood Pressure 117/94 H 04/16/25 15:01 Pulse Oximetry 100 04/16/25 15:01 Oxygen Delivery Room Air 04/16/25 15:01 Temperature 97.3 F L 04/16/25 15:01 Pulse Rate 65 04/16/25 16:51 Respiratory Rate 14 04/16/25 16:51 Blood Pressure 138/85 04/16/25 16:51 Pulse Oximetry 97 04/16/25 16:51 Oxygen Delivery Room Air 04/16/25 15:01 MDM MDM Narrative Medical decision making narrative: 50-year-old female presenting with right knee pain. Patient states she has a significant history of knee issues. She had been experiencing right knee pain for the last 3 and half weeks and had seen Dr. Bobby with Orthopedics who ordered an MRI. Patient underwent the MRI this morning and then went home and was walking outside when she suddenly felt a pop. She was able to bear weight immediately but the pain began to worsen and she is now reporting that she cannot bear weight. Denies numbness/tingling. Neurovascular intact. Patient denied imaging stating that nothing is ever found on x-ray. She states that she took hydrocodone earlier and is taking Tylenol and anti-inflammatories around the clock to help her pain. She was offered an Juan Jose wrap and crutches for which she also declined. Patient states that she really only came in to obtain a work note. Work note provided. Differential diagnosis and treatment plan were discussed with the patient including close follow-up with Dr. Bobby regarding her MRI results. Patient agrees with discussion and after shared medical decision making agrees with plan of care. All questions were answered to the patient's satisfaction. The patient is appropriate for outpatient treatment and follow-up. Given reasons to return Differential Diagnosis Differential Diagnosis: Differential diagnostic considerations for lower extremity injury include ankle sprain/strain, acute internal derangement of knee, fracture of femur, fracture of hip, puncture wound of foot, fracture of toe, fracture of ankle, tendon rupture (achilles/patellar/quadriceps). Medical Records I have reviewed the following patient records and this information was taken into consideration when formulating the assessment and plan.: previous ER visits and previous clinic visits Discharge Plan Discharge Clinical Impression: Knee pain Patient Disposition: Home Condition: Stable Instructions: Knee Pain (ED) Additional Instructions: Return to the ER if you experience fever, redness and swelling of your extremity, numbness or any other symptoms that are concerning to you Weight-bearing as tolerated. Ice and elevate extremity. Pain medication as needed and directed. Take anti-inflammatories (Aleve, Ibuprofen, Naproxen, etc) or Tylenol as needed for pain. Follow-up with your orthopedic provider Dr. Bobby. Follow up with your pcp for any other general concerns. Patient Language: Andorran Prescriptions: No Action lidocaine HCl [Lidocaine Viscous] 2 % solution 1 applic mucous membrane QID PRN (Reason: pain) Qty: 100 0RF Follow-up/Referrals: Roman Bobby MD [Physician, Orthopedics] Deven Beckham MD [Primary Care Provider, Family Practice] Stand Alone Forms: Work/School Release IP
== END 2025-04-16 16:52 | disposition home or self-care (01) ==
PROVIDERS: PCP Family Medicine
DX: M25.561 Pain in right knee (principal)
CPT/HCPCS: 99281